=== PATIENT | female | born 1970 | race Caucasian/White ===

== ENCOUNTER 2018-06-17 13:03 | Emergency (ER) | payer BC ==
[2018-06-17 13:45] LABS: URINE BLOOD (Dip) POC Negative (NEGATIVE); URINE GLUCOSE (Dip) POC Negative (NEGATIVE); URINE KETONES (Dip) POC Negative (NEGATIVE); URINE LEUKOCYTE EST (Dip) POC Negative (NEGATIVE); URINE NITRITE (Dip) POC Negative (NEGATIVE); URINE TOTAL PROTEIN POC Negative (NEGATIVE)
[2018-06-17 13:45] LABS: URINE PH (Dip) POC 7.5 (5.0-8.5)
[2018-06-17] MEDS: ACETAMINOPHEN 325 MG TAB PO (13:56)
[2018-06-17] MEDS: LISINOPRIL 10 MG TAB PO (13:56)
== END 2018-06-17 15:08 | disposition home or self-care (01) ==
LOC: FTE 13:03
DX: R51 Headache (principal); I10 Essential (primary) hypertension; E11.9 Type 2 diabetes mellitus without complications
CPT/HCPCS: 70450; 81003; 81025; 99284-25